=== PATIENT | female | born 1960 | race Caucasian/White ===

== ENCOUNTER 2019-10-15 11:25 | Emergency (ER) | payer OTHER ==
[2019-10-15 11:45] VITALS: BP 118/73
[2019-10-15 12:04] LABS: Influenza A Molecular Negative (Negative); Influenza B Molecular Negative (Negative)
--- NOTE | 2019-10-15 12:20 | UC ---
FLU HPI - HPI Summary HPI Summary: 58-year-old woman comes in with a chief complaint of influenza-like symptoms for 2 days. She has fever chills headache body aches. Took some Tylenol which did help some. Denies any rhinorrhea sore throat or chest congestion. No history of asthma. No UTI symptoms. No change in bowel habits. No focal area of abdominal pain. - History of Current Complaint Chief Complaint: UCGeneralIllness Stated Complaint: FEVER,CHILLS, BODY ACHES Time Seen by Provider: 10/15/19 11:45 Pain Intensity: 9 - Allergy/Home Medications Allergies/Adverse Reactions: Allergies Allergy/AdvReac Type Severity Reaction Status Date / Time No Known Allergies Allergy Verified 10/15/19 11:43 Home Medications: Home Medications Acetaminophen [Tylenol Extra Strength] 1,000 mg PO ONCE 10/15/19 [History Confirmed 10/15/19] Amoxicillin PO (*) [Amoxicillin 875 MG (*)] 875 mg PO BID #20 tab 10/15/19 [Rx] Cholecalciferol TAB* [Vitamin D TAB*] 1,000 unit PO DAILY 10/15/19 [History Confirmed 10/15/19] metFORMIN* [Glucophage 1000 MG TAB *] 1,000 mg PO BID 10/15/19 [History Confirmed 10/15/19] PMH/Surg Hx/FS Hx/Imm Hx Previously Healthy: Yes Endocrine History: Diabetes - Surgical History Surgical History: Yes Surgery Procedure, Year, and Place: x3. parathyroid - Family History Known Family History: Positive: Non-Contributory - Social History Alcohol Use: None Substance Use Type: None Smoking Status (MU): Never Smoked Tobacco Review of Systems All Other Systems Reviewed And Are Negative: Yes Constitutional: Positive: Fever, Chills, Other - SEE HPI Skin: Positive: Negative Eyes: Positive: Negative ENT: Positive: Negative Respiratory: Positive: Negative Cardiovascular: Positive: Negative Gastrointestinal: Positive: Negative Genitourinary: Positive: Negative Motor: Positive: Negative Neurovascular: Positive: Negative Musculoskeletal: Positive: Myalgia Neurological/Mental Status: Positive: Headache Psychological: Positive: Negative Is Patient Immunocompromised?: No Physical Exam Triage Information Reviewed: Yes Appearance: No Pain Distress, Well-Nourished, Ill-Appearing - MILD Vital Signs: Initial Vital Signs Temp 97.5 F 10/15/19 11:41 Pulse 100 10/15/19 11:41 Resp 18 10/15/19 11:41 BP 118/73 10/15/19 11:41 Pulse Ox 98 10/15/19 11:41 Vital Signs Reviewed: Yes Eye Exam: Normal Eyes: Positive: Conjunctiva Clear ENT: Positive: Pharynx normal, TMs normal Neck: Positive: Supple Respiratory: Positive: Lungs clear, Normal breath sounds, No respiratory distress Cardiovascular: Positive: RRR Musculoskeletal: Positive: Strength Intact, ROM Intact Neurological: Positive: Alert, Muscle Tone Normal Psychological: Positive: Normal Response To Family, Age Appropriate Behavior Skin Exam: Normal Flu Course/Dx - Course Course Of Treatment: Influenza swabs negative. Patient has an influenza-like illness. No focal area of infection; no rhinorrhea, sore throat, chest congestion, urinary tract infection symptoms focal, abdominal pain. I recommended symptomatic treatment. Discussed viral versus bacterial infections and patient does prefer to have an antibiotic prescription at this time to be used if symptoms do not improve or worsen. Patient's to get reevaluated if she worsens or any questions or concerns. - Differential Dx/Diagnosis Provider Diagnosis: Influenza-like illness Discharge ED - Sign-Out/Discharge Documenting (check all that apply): Patient Departure All imaging exams completed and their final reports reviewed: No Studies - Discharge Plan Condition: Stable Disposition: HOME Prescriptions: Amoxicillin PO (*) [Amoxicillin 875 MG (*)] 875 mg PO BID #20 tab Patient Education Materials: Influenza (ED) Forms: *Work Release Referrals: [facility] [place] [facility] REFERR[facility] [Outside] Additional Instructions: FOLLOW UP WITH YOUR DOCTOR IF NOT COMPLETELY IMPROVED. Start the amoxicillin at this any signs of a bacterial infection. GET REEVALUATED SOONER IF NOT IMPROVED OR WORSE OR ANY QUESTIONS OR CONCERNS. - Billing Disposition and Condition Condition: STABLE Disposition: Home
== END 2019-10-15 12:24 | disposition home or self-care (01) ==
LOC: UCCORT 11:25
DX: R50.9 Fever, unspecified (principal); R51 Headache; M79.10 Myalgia, unspecified site; E11.9 Type 2 diabetes mellitus without complications; Z79.84 Long term (current) use of oral hypoglycemic drugs
CPT/HCPCS: 99202; G0463